=== PATIENT | male | born 1960 | race Caucasian/White ===

== ENCOUNTER 2020-03-16 03:20 | Inpatient (IN) ==
[2020-03-16] MEDS ORDERED: Labetalol IV 5 MG/ML 20 ml VIAL IV PUSH ONE (04:54)
[2020-03-16] MEDS ORDERED: Nitro Patch/OINT Remove PATCH TOPICAL PRN (05:00)
[2020-03-16] MEDS ORDERED: Nitro 2% OINT (Nitroglycerin) 1 INCH/PAK TOPICAL PRN (06:17)
[2020-03-16 08:20] LABS: ABS Basophils 0.1 10^3/ul (0-0.2); ABS Eosinophils 0.2 10^3/ul (0-0.6); ABS Lymphocytes 2.6 10^3/ul (1.0-4.8); ABS Monocytes 0.4 10^3/ul (0-0.8); ABS Neutrophils 5.6 10^3/ul (1.5-7.7); Eosinophil % 2.8 %; Hematocrit 48 % (42-52); Hemoglobin 16.5 g/dL (14.0-18.0); Lymphocyte % 29.3 %; Mean Corpuscular HGB Conc 34 g/dL (31-36); Mean Corpuscular Hemoglobin 32 pg (27-31); Mean Corpuscular Volume 94 fL (80-94); Mean Platelet Volume 8.1 fL (7.4-10.4); Platelet Count 165 10^3/uL (150-450); Red Blood Count 5.13 10^6 /uL (4.18-5.48); Red Cell Distribution Width 14 % (10-15); White Blood Count 8.9 10^3/uL (3.5-10.8)
[2020-03-16 08:31] LABS: Anion Gap 4 mmol/L (2-11); BUN/Creatinine Ratio 23.9 (8-20); Blood Urea Nitrogen 22 mg/dL (6-24); CO2 Carbon Dioxide 27 mmol/L (22-32); Calcium 9.3 mg/dL (8.6-10.3); Chloride 109 mmol/L (101-111); EGFR African American 102.2 (>60); EGFR Non-African American 84.5 (>60); Glucose 100 mg/dL (70-100); Potassium 4.4 mmol/L (3.5-5.0); Sodium 140 mmol/L (135-145)
[2020-03-16 08:39] LABS: Troponin I 0.94 ng/mL (<0.03)
[2020-03-16 12:17] LABS: INR 2.65 (0.82-1.09)
[2020-03-16] MEDS ORDERED: Phytonadione Oral Solution 5 MG/25 ML UDC PO ONE (12:26)
[2020-03-16 12:44] LABS: Troponin I 2.14 ng/mL (<0.03)
[2020-03-16 16:59] LABS: Troponin I 2.83 ng/mL (<0.03)
[2020-03-16 20:19] LABS: Troponin I 3.79 ng/mL (<0.03)
[2020-03-16 23:07] LABS: Troponin I 3.67 ng/mL (<0.03)
[2020-03-16] MEDS ORDERED: NS 0.9% 1000 ml BAG 1,000 ML IV SCH (23:55)
[2020-03-17 06:37] LABS: INR 1.7 (0.82-1.09)
[2020-03-17 06:44] LABS: Anion Gap 4 mmol/L (2-11); BUN/Creatinine Ratio 19.8 (8-20); Blood Urea Nitrogen 18 mg/dL (6-24); CO2 Carbon Dioxide 26 mmol/L (22-32); Calcium 8.6 mg/dL (8.6-10.3); Chloride 108 mmol/L (101-111); EGFR African American 103.5 (>60); EGFR Non-African American 85.6 (>60); Glucose 103 mg/dL (70-100); Potassium 4.4 mmol/L (3.5-5.0); Sodium 138 mmol/L (135-145)
[2020-03-17 06:48] LABS: Troponin I 2.49 ng/mL (<0.03)
[2020-03-17] MEDS ORDERED: diPHENhydraMINE 25 mg TAB PO PRN (08:00)
[2020-03-17] MEDS ORDERED: Heparin 1,000 UNIT/ML 10 ml (10,000 UNITS) CATHLAB/DIALYSIS ONE (09:23)
[2020-03-17] MEDS ORDERED: nitroGLYCERIN DRIP 25,000 MCG/250 ML BTL ONE (09:23)
[2020-03-17] MEDS ORDERED: Iohexol 350 (CONTRAST) 200 ML MDV IV ONE ×2 (09:23→11:33)
[2020-03-17] MEDS ORDERED: Heparin 2 UNITS/ML 1000 mls 2,000 ML IV ONE (09:23)
[2020-03-17] MEDS ORDERED: Midazolam 5 mg/5 ml VIAL 1 mg/ml 5 ml VIAL (5 mg) ONE (09:23)
[2020-03-17] MEDS ORDERED: VERAPAMIL 2.5 MG/ML 2 ML VIAL ** 5 mg/2 ml ONE (09:23)
[2020-03-17] MEDS ORDERED: fentaNYL 100 mcg/2 ml 50 MCG/ML VIAL ONE (09:23)
[2020-03-17] MEDS ORDERED: Lidocaine 1% VIAL 10 MG/ML VIAL ONE (09:23)
[2020-03-17] MEDS ORDERED: Bivalirudin 250 MG VIAL ONE (11:34)
[2020-03-17 18:13] LABS: Cholesterol 192 mg/dL; HDL Cholesterol 32.2 mg/dL; LDL Cholesterol 122 mg/dL; Triglycerides 191 mg/dL
[2020-03-18 04:55] LABS: BUN/Creatinine Ratio 23.7 (8-20); EGFR African American 170.7 (>60); EGFR Non-African American 141.1 (>60); Potassium 2.9 mmol/L (3.5-5.0)
[2020-03-18 05:12] LABS: Calcium 5.6 mg/dL (8.6-10.3)
[2020-03-18] MEDS ORDERED: Potassium Chlor 20 meq TAB.ER PO SCH (10:00)
[2020-03-18 12:16] LABS: BUN/Creatinine Ratio 17.8 (8-20); Calcium 8.9 mg/dL (8.6-10.3); EGFR African American 104.9 (>60); EGFR Non-African American 86.7 (>60); Magnesium 2.1 mg/dL (1.9-2.7); Potassium 4.4 mmol/L (3.5-5.0)
[2020-03-18 14:25] VITALS: BP 142/73
== END 2020-03-18 13:59 | disposition home or self-care (01) | DRG 174 ==
LOC: ED 03:20 → MEDTELE 09:19 → ICU 03-17 13:29
PROVIDERS: ADMIT Specialist; ATTEND Surgery Surgical Critical Care